=== PATIENT | male | born 1935 | race Caucasian/White ===

== ENCOUNTER → 2021-05-29 | Outpatient (CLI) | payer MEDICARE, OTHER ==
[~2021-05-29] MED LIST: ALBUTEROL2.5 MG/3 M INH; BETAPACE 80MG T80 MG PO; BREO ELLIPTA 11 EACH INH; CARDIZEM CD120 MG PO; CRESTOR20 MG PO; ECOTRIN81 MG PO; ELIQUIS2.5 MG PO; FLOMAX0.4 MG PO; MULTAQ 400 MG400 MG PO; TENORMIN 25 MG25 MG PO; VITAMIN D250000 UNIT PO; ZESTRIL2.5 MG PO
== END ==
LOC: KOH-I 13:38
DX: R06.02 Shortness of breath (principal); R63.4 Abnormal weight loss; J43.9 Emphysema, unspecified; R91.8 Other nonspecific abnormal finding of lung field
CPT/HCPCS: 71046